=== PATIENT | male | born 1985 | race Hispanic/Latino ===

== ENCOUNTER 2018-05-12 12:35 | Emergency (ER) | payer SELFPAY ==
[~2018-05-12] VITALS: Ht 167.6 cm; Wt 69.4 kg
[2018-05-12 14:22] LABS: BASOPHILS % 0.6 % (0.0-1.0); EOSINOPHILS # (AUTO) 0.1 (0.0-0.4); EOSINOPHILS % 0.8 % (0.0-6.0); HEMOGLOBIN 13.8 g/dL (14.0-18.0); LYMPHOCYTES # (AUTO) 1.4 (1.0-3.2); LYMPHOCYTES % 19.4 % (18.0-39.1); MEAN CORPUSCULAR HEMOGLOBIN 31.4 pg (28-32); MEAN CORPUSCULAR HGB CONC 34.5 g/dL (31-35); MEAN CORPUSCULAR VOLUME 90.9 fL (81-99); MONOCYTES # (AUTO) 0.4 (0.2-0.8); MONOCYTES % 5.1 % (4.4-11.3); NEUTROPHILS # (AUTO) 5.4 (2.1-6.9); NEUTROPHILS % 73.8 % (38.7-80.0); PLATELET COUNT 211 x10e3/uL (140-360); RED CELL DISTRIBUTION WIDTH 13.1 % (11.7-14.4)
[2018-05-12 14:37] LABS: ANION GAP 13.8 mmol/L (8-16); BLOOD UREA NITROGEN 12 mg/dL (7-26); BUN/CREATININE RATIO 13 (6-25); CALCIUM 9.4 mg/dL (8.4-10.2); CARBON DIOXIDE 23 mmol/L (22-29); CHLORIDE 108 mmol/L (98-107); CREATININE, SERUM 0.89 mg/dL (0.72-1.25); EST GLOMERULAR FILTRATION RATE > 60 ML/MIN (60-); GLUCOSE 97 mg/dL (74-118); POTASSIUM 3.8 mmol/L (3.5-5.1); SODIUM 141 mmol/L (136-145)
[2018-05-12] MEDS ORDERED: SODIUM CHLORIDE 0.9% 50ML 50 ML ONE (14:49)
[2018-05-12] MEDS ORDERED: IOPAMIDOL 370 MG/ML 200 ML INFUS..BTL INJ ONE (14:49)
--- NOTE | 2018-05-12 16:12 | Diagnostic Imaging Report ---
EXAMINATION: CT of the neck with contrast HISTORY: Status post distal benign before, puncture wound along the right posterior neck COMPARISON: None TECHNIQUE: Multidetector helical axial images were obtained from the sternal notch through the skull base during intravenous infusion of iodinated contrast material. Images were reconstructed using soft tissue and bone algorithms and were viewed in multiplanar format. Intravenous contrast: 100 mL of Isovue-370. Dose modulation, iterative reconstruction, and/or weight based adjustment of the mA/kV was utilized to reduce the radiation dose to as low as reasonably achievable. FINDINGS: Primary lesion: Right posterior superior neck superficial soft tissues penetrating wound injury/laceration (approximately 1 cm deep to the skin), with partial involvement of the right posterior paraspinal muscles (semispinalis capitis muscle). No discrete hematoma, no underlying vascular lesion. Nodes: No lymphadenopathy. Sinuses: Imaged portions unremarkable. Oral cavity: Unremarkable. Salivary glands: Parotid and submandibular glands unremarkable. Pharynx: Unremarkable. Larynx: Unremarkable. Thyroid gland: Unremarkable. Upper esophagus: Unremarkable. Blood vessels: Unremarkable. Bones: Unremarkable. IMPRESSION: Right posterior upper neck cutaneous/subcutaneous and muscle laceration as detailed above, no hematoma or post traumatic vascular injury is identified at this time. Lower Signed by: Dr. Cindy Puente M.D. on 05/12/2018 4:09 PM
[2018-05-12] MEDS ORDERED: TETANUS/DIPHTHERIA TOX ADULT 0.5 ML SYR IM ONE (16:15)
== END 2018-05-12 16:19 | disposition home or self-care (01) ==
LOC: ER 12:35
DX: S11.81XA Laceration without foreign body of other specified part of neck, initial encounter (principal); W25.XXXA Contact with sharp glass, initial encounter; Y92.512 Supermarket, store or market as the place of occurrence of the external cause
CPT/HCPCS: 12001; 36415; 70491; 80048; 85025; 90471; 90714; 99284; Q9967